=== PATIENT | female | born 1990 | race African-American/Black ===

== ENCOUNTER 2017-01-08 17:35 | Emergency (ER) | payer MEDICAID ==
[~2017-01-08] VITALS: Ht 157.5 cm; Wt 78.0 kg
[~2017-01-08 17:35] MED LIST: CEPH500C2 PO; SULF-165 PO
[2017-01-08] MEDS ORDERED: KETOROLAC 30MG/ML VIAL IM ONE (22:30)
[2017-01-08 23:15] VITALS: BP 108/64
== END 2017-01-09 00:23 | disposition home or self-care (01) ==
LOC: ER 21:43
DX: K08.89 Other specified disorders of teeth and supporting structures (principal); H92.02 Otalgia, left ear; R03.0 Elevated blood-pressure reading, without diagnosis of hypertension; Z88.0 Allergy status to penicillin
CPT/HCPCS: 96372; 99283; J1885; Z7610

== ENCOUNTER 2017-08-06 17:54 | Emergency (ER) | payer MEDICAID ==
[~2017-08-06] VITALS: Ht 157.5 cm; Wt 74.7 kg
[2017-08-06] MEDS ORDERED: ACETAMINOPHEN WITH CODEINE 300/30MG TABLET PO ONE (19:00)
[2017-08-06] MEDS ORDERED: ACETAMINOPHEN 325MG TABLET PO ONE (19:15)
[2017-08-06 20:28] VITALS: BP 113/83
== END 2017-08-06 20:31 | disposition home or self-care (01) ==
LOC: ER 18:26
DX: Z36.9 Encounter for antenatal screening, unspecified (principal); S80.02XA Contusion of left knee, initial encounter; F12.10 Cannabis abuse, uncomplicated; W50.2XXA Accidental twist by another person, initial encounter; Y92.89 Other specified places as the place of occurrence of the external cause; Y93.72 Activity, wrestling; Y99.8 Other external cause status
CPT/HCPCS: 73562; 81025; 99284; L1830

== ENCOUNTER 2017-12-28 15:08 | Observation (INO) | payer MEDICAID ==
[~2017-12-28] VITALS: Ht 157.5 cm; Wt 80.3 kg
[2017-12-28 17:01] LABS: BASOPHILS % 0.7 % (0.0-2.0); EOSINOPHILS % 7.5 % (0.0-5.0); HEMATOCRIT. 32.1 % (36.0-48.0); HEMOGLOBIN. 11.1 g/dL (12.0-16.0); LYMPHOCYTES % 33.7 % (20.0-50.0); MEAN CORPUSCULAR HEMOGLOBIN 31.9 pg (28.0-32.0); MEAN CORPUSCULAR VOLUME 91.9 fL (81.0-99.0); MEAN PLATELET VOLUME 8.2 fl (7.4-10.4); MONOCYTES % 7.9 % (2.0-8.0); NEUTROPHILS % 50.2 % (40.0-76.0); PLATELET 284 x1000/uL (130-400); RED BLOOD CELL COUNT 3.49 mill/uL (4.2-5.4); RED CELL DISTRIBUTION WIDTH 13.9 % (11.6-14.6)
[2017-12-28 17:05] LABS: PARTIAL THROMBOPLASTIN TIME 23.6 sec (23.4-31.0); PROTHROMBIN TIME 10.3 sec (9.4-11.6)
[2017-12-28] MEDS ORDERED: PREN1TAB33 MT (23:30)
[2017-12-28] MEDS ORDERED: CALC-1042 MT (23:30)
== END 2017-12-28 16:45 | disposition home or self-care (01) ==
LOC: L&D 15:08
PROVIDERS: ADMIT Specialist; ATTEND Specialist
DX: O41.02X0 Oligohydramnios, second trimester, not applicable or unspecified (principal); O36.8120 Decreased fetal movements, second trimester, not applicable or unspecified; O62.9 Abnormality of forces of labor, unspecified; Z3A.18 18 weeks gestation of pregnancy
CPT/HCPCS: 36415; 76805; 85025; 85610; 85730; 99281; G0378

== ENCOUNTER 2018-07-27 18:00 | Emergency (ER) | payer MEDICAID ==
[~2018-07-27] VITALS: Ht 157.5 cm; Wt 79.0 kg
[~2018-07-27 18:00] MED LIST changes: +CALC-1042 MT; -CEPH500C2 PO; +PREN1TAB33 MT; -SULF-165 PO
[2018-07-27 18:58] VITALS: BP 128/66
== END 2018-07-27 21:40 | disposition left against medical advice (07) ==
LOC: ER 18:22
DX: Z53.21 Procedure and treatment not carried out due to patient leaving prior to being seen by health care provider (principal)